=== PATIENT | female | born 1960 | race Caucasian/White ===

== ENCOUNTER 2016-09-22 09:55 | Outpatient (CLI) | payer MEDICARE, OTHER ==
[2012-07-06 18:52] VITALS: BP 118/64
[2016-09-22 10:25] LABS: eGFR (African) > 60; eGFR (Non-African) > 60
[2016-09-22 10:26] LABS: BASOPHILS % 0.7 (0.0-1.5); EOSINOPHILS % 3.9 % (0.0-6.8); MEAN CORPUSCULAR HEMOGLOBIN 27.3 pg (28.0-34.0); MEAN CORPUSCULAR VOLUME 85.3 fl (80.0-100.0); MONOCYTES % 3.5 % (0.0-11.0); NEUTROPHILS # 5.8 # k/uL (1.4-7.7)
== END 2016-09-22 09:56 ==
LOC: LABRHC 09:55
PROVIDERS: ATTEND Family Medicine
DX: R53.82 Chronic fatigue, unspecified (principal); R73.9 Hyperglycemia, unspecified
CPT/HCPCS: 80053; 83036; 85025

== ENCOUNTER 2017-01-18 10:18 | Emergency (ER) | payer MEDICARE, OTHER ==
--- NOTE | 2017-01-18 10:48 | ED Physician Documentation ---
General Adult - HISTORIAN Historian: patient - HPI Stated Complaint: high blood pressure Chief Complaint: General Adult Onset: days ago (2) Further Comments: yes (56 year old female patient presents with complaints of hypertension. Patient reports she increased her losartan to twice a day on Wednesday and Wednesday. See attached BP record. Patient states she has not been able to keep her lymphedema wraps on her legs.) - ROS CONST: no problems EYES/ENT: none CVS/RESP: none GI/: none MS/SKIN/LYMPH: other (leg edema - bilateral) NEURO/PSYCH: denies: headache, fainting, dizziness, tingling, numbness, difficulty walking, difficulty with speech, anxiety, depression, other - PAST HX Past History: hypertension Other History: other (lymphedema) Allergies/Adverse Reactions: Allergies Allergy/AdvReac Type Severity Reaction Status Date / Time Penicillins Allergy Intermediate Hives Verified 01/18/17 10:41 Sulfa (Sulfonamide Allergy Verified 01/18/17 10:41 Antibiotics) Home Medications: Ambulatory Orders Medication Instructions Recorded Estradiol [Estrace] 2 mg PO QDAY 07/06/12 Losartan Potassium [Cozaar] 25 mg PO BID #28 01/18/17 Losartan Potassium [Cozaar] 25 mg PO BID #28 tablet 01/18/17 - SOCIAL HX Smoking History: cigarettes - FAMILY HX Family History: No - VITAL SIGNS Vital Signs: Vital Signs Temp Pulse Resp BP Pulse Ox 97.7 F 88 16 160/93 99 01/18/17 10:18 01/18/17 10:18 01/18/17 10:18 01/18/17 10:18 01/18/17 10:18 - REVIEWED ASSESSMENTS Nursing Assessment Reviewed: Yes Vitals Reviewed: Yes Progress - Progress Progress: Patient reports she is followed by lyphedema clinic. Does not have wraps on her legs today. Patient wanting to cut a sock and place under her wraps. Instructed patient to call clinic at and to follow their instructions. Explained she needed to wear her wraps as instructed by the clinic. Discussed BP, likely related to increased edema. Will increase losartan to BID , instructed patient to see Dr Abarca next week for medication management. General Adult Physical Exam - PHYSICAL EXAM GENERAL APPEARANCE: [id number] N EENT: eye inspection normal, MULUGETA RESPIRATORY: no resp distress, chest non-tender, breath sounds normal CVS: reg rate & rhythm, heart sounds normal, equal pulses, no murmur, no gallop , PMI nml, no JVD, no friction rub, 24 ABDOMEN: soft, no organomegaly, normal bowel sounds, no abdominal bruit, no distension BACK: normal inspection, no CVA tenderness SKIN: normal color, warm/dry, NR, INT, PAL, DR EXTREMITIES: non-tender, normal range of motion, no evidence of injury, edema (2 + edema) NEURO: oriented X3, CN's nml as tested, motor nml, sensation nml, mood/affect nml Discharge Clincal Impression: Lymph edema Hypertension Qualifiers: Hypertension type: essential hypertension Qualified Code(s): I10 - Essential ( primary) hypertension Prescriptions: Losartan Potassium [Cozaar] 25 mg PO BID #28 Losartan Potassium [Cozaar] 25 mg PO BID #28 tablet Referrals: Malcolm Abarca MD [Primary Care Provider] - 2 Days Additional Instructions: Increase your losartan to twice a day. A prescription for 14 days worth of medication has been [facility] to [facility]. Make an appointment to see Dr Abarca NEXT week for a BP check and adjustment of medication. Home Medications: Ambulatory Orders Estradiol [Estrace] 2 mg PO QDAY 07/06/12 Losartan Potassium [Cozaar] 25 mg PO BID #28 01/18/17 Losartan Potassium [Cozaar] 25 mg PO BID #28 tablet 01/18/17 Condition: Stable Disposition: 01 HOME, SELF-CARE Decision to Admit: NO Decision Time: 10:48
[2017-01-18 11:06] VITALS: BP 137/80
== END 2017-01-18 10:54 | disposition home or self-care (01) ==
LOC: ED 10:18
DX: R60.9 Edema, unspecified (principal); I10 Essential (primary) hypertension
CPT/HCPCS: 99283

== ENCOUNTER 2017-07-27 15:37 | Outpatient (CLI) | payer MEDICARE, OTHER ==
--- NOTE | 2017-07-27 16:42 | Diagnostic Imaging Report ---
ZABRINA GROSS [facility] [address] [facility] [address] [address] Report Submission Date: Jul 27, 2017 4:36:03 PM CDT Patient Study Name: ANDREI PAIZ Date: Jul 27, 2017 4:14:57 PM CDT Modality Type: DX Gender: F Description: PELVIS : 56 Institution: [facility] Physician: ZABRINA GROSS Examination: Plain film left hip History: FELL ON ICE X 4 WEEKS AGO, HIP PAIN (Hx) Comparison exams: None provided Findings: 2 views of the left hip demonstrate normal cortical margins. No fracture no dislocation. Superior acetabular spurring. No soft tissue abnormality. Impression: No acute osseous abnormality. Electronically signed on Jul 27, 2017 4:36:03 PM CDT by: Daren MURRAY
== END 2017-07-27 15:40 ==
LOC: RAD 15:37
PROVIDERS: ATTEND Family Medicine
DX: S70.02XA Contusion of left hip, initial encounter (principal); W19.XXXA Unspecified fall, initial encounter; Y99.9 Unspecified external cause status

== ENCOUNTER 2017-08-16 16:22 | Outpatient (CLI) | payer MEDICARE, OTHER ==
[2017-08-17 13:56] LABS: eGFR (African) > 60; eGFR (Non-African) > 60
== END 2017-08-16 16:23 ==
LOC: LAB 16:22
PROVIDERS: ATTEND Family Medicine
DX: E11.9 Type 2 diabetes mellitus without complications (principal)
CPT/HCPCS: 36415; 80053; 80061; 82043; 83036

== ENCOUNTER 2017-08-23 14:32 | Outpatient (CLI) | payer MEDICARE, OTHER | END 2017-08-23 14:33 | LOC: OUT 14:32 | PROVIDERS: ATTEND Family Medicine | DX: E66.9 Obesity, unspecified (principal); Z68.41 Body mass index [BMI] 40.0-44.9, adult | CPT/HCPCS: G0270 ==

== ENCOUNTER 2017-09-09 12:06 | Outpatient (CLI) | payer MEDICARE, OTHER ==
--- NOTE | 2017-09-09 18:34 | Diagnostic Imaging Report ---
ZABRINA GROSS [facility] [address] [facility] [address] [address] Report Submission Date: September 09, 2017 1:04:34 PM CDT Patient Study Name: ANDREI PAIZ Date: September 09, 2017 12:18:21 PM CDT Modality Type: DX Gender: F Description: LOWER EXTREMITY : 56 Institution: [facility] Physician: ZABRINA GROSS Examination: Plain film knees History: BILATERAL KNEES, BILAT KNEE PAIN, RT WORSE THAN LEFT. NO KNOWN INJURY ( Hx) Findings: 3 views of the right and left knee demonstrates osteopenia. Tibial spine and patellar spurring. No fracture. No dislocation. No joint effusion. No soft tissue irregularity. Impression: Articular degenerative changes and osteopenia. No acute osseous abnormality. Electronically signed on September 09, 2017 1:04:34 PM CDT by: Daren MURRAY
== END 2017-09-09 12:07 ==
LOC: RAD 12:06
PROVIDERS: ATTEND Family Medicine
DX: M17.0 Bilateral primary osteoarthritis of knee (principal)

== ENCOUNTER 2017-09-21 13:08 | Outpatient (CLI) | payer MEDICARE, OTHER ==
[2017-09-21] MEDS ORDERED: TRIAMCINOLONE ACETONID 40MG/ML VIAL ONE (13:10)
[2017-09-21] MEDS ORDERED: Lidocaine 1% 5ml(IM or SUTURE)(PAIN CLINIC) ONE (13:10)
[2017-09-21] MEDS ORDERED: BUPIVACAINE HCL/PF 2.5 MG/ML 10ML VIAL IV ONE (13:10)
--- NOTE | 2017-09-22 11:30 | PIRIFORMIS INJECTION FLUORO ---
SUBJECTIVE: Ms. Deras is a 56-year-old white female I have treated with a lumbar transforaminal for left lower extremity pain last year. She got several weeks of improvement but the pain began to return and subsequently, she was seen by Dr. Deras and received what sounds like a single-shot epidural injection and did not obtain significant improvement at that point. She has been seen by physical therapy who suggested that she has a piriformis muscle spasm. I did examine her today and she certainly has left greater trochanteric bursitis. To this extent, I am going to place a piriformis muscle block with a left greater trochanteric bursa injection under fluoroscopy today. Because she has spinal stenosis and chronic back and lower extremity pain that is not responding to conservative or interventional therapy, I think we could discuss the possibility of a spinal cord stimulator today. FIRST PROCEDURE: Left piriformis muscle injection with fluoroscopic guidance. DESCRIPTION OF PROCEDURE: The risks and benefits of the procedure were explained to the patient in detail today. Specifically the risks of infection, bleeding and nerve injury were explained, with subsequent sequelae including systemic infection, hospitalization, or even paralysis. Furthermore, the risks of steroid exposure including the risks of increased infection risks as well as hypertension and hyperglycemia were discussed. The patient understood these risks and agreed to proceed with the injections. Written consent was obtained. The patient was brought to the fluoroscopy suite and placed on the table in the prone position. The back and gluteal region and posterior hip region was cleaned and sterile drapes were applied. AP and lateral fluoroscopic views of the lumbar spine and pelvis and hip were obtained. An AP fluoroscopic view of the sacrum and left hip joint was obtained. A 23-gauge, 3-1/2 spinal needle was advanced at a point midway between the greater trochanter and the sacrum on fluoroscopic viewing. This was located roughly over the head of the femur on the AP fluoroscopic view. The needle was advanced until it reached the depth of the piriformis muscle. It was verified that there was no aspiration of cerebral spinal fluid or blood or fluid or air. Omnipaque 240 myelogram dye was injected and noted to course within the distribution of the left piriformis muscle. With the needle position thus verified, the medication was injected into the muscle. The needle was subsequently removed from the back. The back was cleaned and bandages were applied over the injection sties as necessary. The patient was subsequently monitored for 20 minutes following the procedure, during which no adverse sequelae were experienced. SECOND PROCEDURE: Left greater trochanteric bursa injection with fluoroscopy. DESCRIPTION OF PROCEDURE: The risks and benefits of the procedure were discussed with the patient, including the risk of infection, bleeding, nerve injury. Furthermore, I discussed the risk of steroid exposure causing hyperglycemia, hypertension, osteoporosis, or increased infectious risks. The patient understood the risks and agreed to proceed. Consent was obtained. The patient was placed in prone position on the fluoroscopy table and the skin overlying the left greater trochanter of the femur was cleaned. The trochanter was visualized under AP fluoroscopy. A needle was inserted over the trochanter and advanced until contact with the trochanter. It was verified that there was no aspiration of fluid or blood. The medication was injected. The needle was removed. The patient was monitored for 20 minutes following the procedure, during which time the patient experienced no adverse sequelae. The patient was discharged to home in good condition with a dairy truck driver driving the patient home. FINAL DIAGNOSES: 1. Left greater trochanteric bursitis. 2. Lumbar spinal stenosis. 3. Chronic back and lower extremity pain. FOLLOW UP: Return to clinic if problems develop or worsen. cc: Dr. Malcolm MURRAY
== END 2017-09-21 13:10 ==
LOC: OUT 13:08
PROVIDERS: ATTEND Anesthesiology Pain Medicine
DX: M70.62 Trochanteric bursitis, left hip (principal); R25.2 Cramp and spasm
CPT/HCPCS: 20610; 64445; 99213; G0463; J3301; J3490; Q9966

== ENCOUNTER 2017-10-26 13:14 | Outpatient (CLI) | payer MEDICARE, OTHER ==
[2017-10-26] MEDS ORDERED: Lidocaine 1% 5ml(IM or SUTURE)(PAIN CLINIC) ONE (13:15)
[2017-10-26] MEDS ORDERED: BUPIVACAINE HCL/EPINEPHRINE/PF 0.25% VIAL IM ONE (13:15)
[2017-10-26] MEDS ORDERED: TRIAMCINOLONE ACETONID 40MG/ML VIAL ONE (13:15)
--- NOTE | 2017-10-29 10:23 | LUMBAR FACET MBB ---
SUBJECTIVE: Ms. Deras follows up with continued axial back pain, lumbosacral in nature. Her radicular symptoms have resolved. I have interviewed her regarding symptoms of neurogenic claudication and she says at this point, she is only getting neurogenic claudication when she has prolonged periods of time on her feet. She complains of axial back pain. She has a positive assisted extension and extension rotation. Her MRI reveals an L4-L5 stenosis but also spondylolytic changes at L4-L5 and L5-S1. As she has positive assisted extension, I think at this point, bilateral L4, L5, and sacral ala facet medial branch blocks may in fact be of diagnostic significance. She may benefit from radiofrequency ablation of the medial nerve. To this extent, I am going to place bilateral facet medial branch blocks today. OPERATIVE PROCEDURE: Bilateral L4, L5, and sacral ala facet medial nerve branch blocks with fluoroscopic guidance for a total of 6 medial branch nerve blocks. DESCRIPTION OF PROCEDURE: Consent was obtained after risks were fully explained including bleeding, infection, nerve damage, worsening of symptoms, and no improvement. In addition, the risk of steroid exposure causing hyperglycemia, hypertension, osteoporosis, or increased infectious risks were explained to the patient. The patient understood these risks and agreed to proceed. The patient was placed in the prone position on the fluoroscopic procedure table with a pillow underneath the abdomen. The back was cleaned and sterile prep and drape were applied. Under AP and oblique fluoroscopic imaging, the L4 vertebral body was identified and a spinal needle was advanced in an oblique fashion in the left junction of the transverse process and the superior articular process of the L4 vertebral body. After negative aspiration of blood or CSF, the medication was injected. The stylet was replaced in the needle and the needle was subsequently removed from the back. In this exact same fashion, the right L4 transverse process, bilateral L5 transverse process, and bilateral sacral ala were injected for a total of 6 medial branch nerves blocked. The patient tolerated the procedure well. ASSESSMENT: 1. Lumbar spondylosis. 2. L4-L5 spinal stenosis. 3. Radiculitis, now resolved. PLAN: Bilateral L4, L5, and sacral ala facet medial nerve branch blocks with fluoroscopic guidance for a total of 6 medial branch nerve blocks. FOLLOWUP: Return to clinic if problems develop or worsen. cc: Dr. Malcolm MURRAY
== END 2017-10-26 13:15 ==
LOC: OUT 13:14
PROVIDERS: ATTEND Anesthesiology Pain Medicine
DX: M47.816 Spondylosis without myelopathy or radiculopathy, lumbar region (principal); M48.061 Spinal stenosis, lumbar region without neurogenic claudication
CPT/HCPCS: 64493; 64494; 64495; 99214; G0463; J3301

== ENCOUNTER 2018-02-17 14:39 | Outpatient (CLI) | payer MEDICARE, OTHER ==
--- NOTE | 2018-02-17 15:15 | Diagnostic Imaging Report ---
ZABRINA GROSS [facility] [address] [facility].[address] [address] Report Submission Date: Feb 17, 2018 3:04:44 PM CDT Patient Study Name: ANDREI PAIZ Date: Feb 17, 2018 2:43:05 PM CDT Modality Type: DX Gender: F Description: CHEST : 56 Institution: [facility] Physician: ZABRINA GROSS Examination: PA and lateral chest. History: Evaluate lung gavin. ABRAHAM, COUGH PT STATES HX OF SMOKING, COUGH X4 WKS (Hx) Comparison exam: None provided. Findings: PA and lateral views of the chest demonstrates a normal cardiac and mediastinal silhouette. Elevated right hemidiaphragm. No focal infiltrate. No blunting of the costophrenic margins. Osseous structures are appropriate for age. Impression: No acute pulmonary process. Electronically signed on Feb 17, 2018 3:04:44 PM CDT by: Daren MURRAY
== END 2018-02-17 14:40 ==
LOC: LAB 14:39
PROVIDERS: ATTEND Family Medicine
DX: R06.09 Other forms of dyspnea (principal)
CPT/HCPCS: 71046

== ENCOUNTER 2018-04-05 12:19 | Outpatient (CLI) | payer MEDICARE, OTHER ==
[2018-03-23 19:34] VITALS: BP 115/74
[2018-04-05 12:38] LABS: eGFR (Non-African) 38
== END 2018-04-05 12:20 ==
LOC: LABRHC 12:19
PROVIDERS: ATTEND Family Medicine
DX: E87.5 Hyperkalemia (principal)
CPT/HCPCS: 36415; 80048

== ENCOUNTER 2018-04-13 11:06 | Outpatient (CLI) | payer MEDICARE, OTHER ==
[2018-03-23 19:34] VITALS: BP 115/74
[2018-04-13 12:43] LABS: eGFR (Non-African) > 60
[2018-04-13 12:44] LABS: MEAN CORPUSCULAR HEMOGLOBIN 26.9 pg (28.0-34.0)
[2018-04-13 12:45] LABS: BASOPHILS % 0.3 (0.0-1.5); MONOCYTES % 3.7 % (0.0-11.0); NEUTROPHILS # 4.7 # k/uL (1.4-7.7)
--- NOTE | 2018-04-14 03:38 | Diagnostic Imaging Report ---
LU AUSTIN [facility] [address] [facility].[address] [address] Report Submission Date: Apr 13, 2018 12:49:13 PM WIND SITE MANAGER Patient Study Name: ANDREI PAIZ Date: Apr 13, 2018 11:50:21 AM WIND SITE MANAGER Modality Type: DX Gender: F Description: SPINE : 56 Institution: [facility] Physician: LU AUSTIN Examination: Cervical spine History: ACUTE NECK PAIN. PT STATES FALL ON 03/18/18 (Hx) Comparison exams: None available Findings: 3 views of the cervical spine demonstrate normal height and alignment. No anterior compression. No abnormal listhesis. Extensive osteophyte formation. Lateral view does not visualize the lower cervical/upper thoracic region. No odontoid abnormality. No prevertebral abnormality Impression: Limited examination. Degenerative changes. No obvious compression deformity. Electronically signed on Apr 13, 2018 12:49:13 PM WIND SITE MANAGER by: Daren MURRAY
--- NOTE | 2018-04-14 03:45 | Diagnostic Imaging Report ---
LU AUSTIN [facility] [address] [facility] [address] Report Submission Date: Apr 13, 2018 12:44:42 PM DIRECTOR SECURITY MANAGEMENT Patient Study Name: ANDREI PAIZ Date: Apr 13, 2018 11:52:58 AM DIRECTOR SECURITY MANAGEMENT Modality Type: DX Gender: F Description: CHEST : 56 Institution: [facility] Physician: LU AUSTIN 2 views of the chest History: CXR, SOA FOR ABOUT A MONTH. CHF Comparison: March 23, 2018 The cardiac silhouette is upper limits of normal. Again noted is central pulmonary vascular prominence. Bibasilar opacities improved from the prior study. No large pleural effusion. Thoracic spine degenerative changes. Impression: 1. Bibasilar infiltrate/atelectasis slightly improved from the prior study. 2. Mild central pulmonary vascular congestion. Electronically signed on Apr 13, 2018 12:44:42 PM DIRECTOR SECURITY MANAGEMENT by: Kelsea MURRAY
== END 2018-04-13 11:08 ==
LOC: LAB 11:06
PROVIDERS: ATTEND Nurse Practitioner Family
DX: R06.02 Shortness of breath (principal); I50.9 Heart failure, unspecified; M54.2 Cervicalgia; M47.812 Spondylosis without myelopathy or radiculopathy, cervical region
CPT/HCPCS: 36415; 71046; 72040; 80053; 83880; 85025

== ENCOUNTER 2018-04-22 12:50 | Outpatient (CLI) | payer MEDICARE, OTHER ==
[2018-03-23 19:34] VITALS: BP 115/74
--- NOTE | 2018-04-23 06:10 | Diagnostic Imaging Report ---
LU AUSTIN [facility] [address] [facility].[address] [address] Report Submission Date: Apr 22, 2018 1:39:53 PM AUDIO VISUAL AIDE Patient Study Name: ANDREI PAIZ Date: Apr 22, 2018 12:59:30 PM AUDIO VISUAL AIDE Modality Type: DX Gender: F Description: UPPER EXTREMITY : 56 Institution: [facility] Physician: LU AUSTIN Right elbow History: Pain status post fall Three views of the right elbow demonstrate mild osteoarthritic findings of the elbow joint. There is no evidence acute fracture or dislocation. No joint effusion is noted. Impression: Mild osteoarthritis. No evidence for acute fracture or dislocation. Electronically signed on Apr 22, 2018 1:39:53 PM AUDIO VISUAL AIDE by: Johanna MURRAY
--- NOTE | 2018-04-23 06:11 | Diagnostic Imaging Report ---
LU AUSTIN [facility] [address] [facility] [address] Report Submission Date: Apr 22, 2018 1:32:35 PM POULTRY PICKING MACHINE TENDER Patient Study Name: ANDREI PAIZ Date: Apr 22, 2018 12:53:01 PM POULTRY PICKING MACHINE TENDER Modality Type: DX Gender: F Description: LOWER EXTREMITY : 56 Institution: [facility] [place] [facility] Physician: LU AUSTIN Left knee History: Pain status post fall AP, lateral and sunrise views of the left knee demonstrate a tiny spur along the lateral femoral condyle. There is mild narrowing of the patellofemoral compartment joint space. Otherwise, no significant degenerative findings are noted. There is no joint effusion. No acute osseous abnormalities are noted. Impression: Mild degenerative findings as described. No acute osseous abnormality. Electronically signed on Apr 22, 2018 1:32:35 PM POULTRY PICKING MACHINE TENDER by: Johanna MURRAY
== END 2018-04-22 13:35 ==
LOC: RAD 12:50
PROVIDERS: ATTEND Nurse Practitioner Family
DX: M19.021 Primary osteoarthritis, right elbow (principal); M17.12 Unilateral primary osteoarthritis, left knee; M25.521 Pain in right elbow; M25.562 Pain in left knee
CPT/HCPCS: 73080; 73562

== ENCOUNTER 2018-05-02 03:58 | Emergency (ER) | payer MEDICARE, OTHER ==
[2018-05-02] MEDS: methylPREDNISolone SOD SUCC 125 MG/2 ML VIAL IVP ONE (03:58)
[2018-05-02] MEDS: BUDESONIDE 0.5MG/2ML AMPUL.NEB NEB ONE (03:58)
--- NOTE | 2018-05-02 04:02 | ED Physician Documentation ---
Dyspnea - HISTORIAN Historian: patient - HPI Stated Complaint: shorness of breath Chief Complaint: Dyspnea Onset: minutes (20) Duration: continues in ED Initiating Event: upper respiratory illness Severity: moderate Exacerbated By: nothing Associated Symptoms: other (stress) Further Comments: yes (presents to ER with severe dyspnea. She is in moderate distress. After breathing treatment she is able to speak and states her significant other is in the car in front and he is the reason she drove to the ER but her anxiety caused her to increase shortness of air. She states she has no fever although in Nov she had pneumonia and she recent finished another dose yesterday of azithromycin) - ROS CONST: recent illness - PAST HX Lung Disease: asthma Cardiac Disease: CHF Allergies/Adverse Reactions: Allergies Allergy/AdvReac Type Severity Reaction Status Date / Time Penicillins Allergy Intermediate Hives Verified 05/02/18 04:29 Sulfa (Sulfonamide Allergy Verified 05/02/18 04:29 Antibiotics) Home Medications: Ambulatory Orders Medication Instructions Recorded Estradiol [Estrace] 2 mg PO QDAY 07/06/12 Torsemide [Demadex] 20 mg PO BID 05/02/18 - SOCIAL HX Smoking History: non-smoker Alcohol Use: none Drug Use: none - FAMILY HX Family History: none - VITAL SIGNS Vital Signs: Vital Signs Temp Pulse Resp BP Pulse Ox 115/74 03/23/18 19:25 - REVIEWED ASSESSMENTS Nursing Assessment Reviewed: Yes Vitals Reviewed: Yes Progress - Progress Progress: 0400: improving. she reports a decrease in shortness of air. Improved air movement DG 0422: continued improvement - she is requesting to removed the oxygen DG 0440: results discussed. Continued improvement DG ED Results Lab/Radiology - Radiology Radiology Impressions: History: SHORTNESS OF BREATH Findings: Comparison is made to exam dated 03/23/2018. Examination is limited by patient's large body habitus. The heart size is normal. The lungs are clear. Calcified granuloma seen in the right lung base. There is no pleural effusion or pneumothorax identified. The osseous structures are normal. Impression: 1. No acute pulmonary disease. Electronically signed on May 02, 2018 4:19:12 AM BARREL ASSEMBLER by: Sravan Ohara Dyspnea Physical Exam - EXAM General Appearance: moderate distress EENT: eye inspection normal, no signs of dehydration Respiratory: respiratory distress (decreased lung sounds on admission - post first treatment lung expansion improved. post second she is able to speak full sentences lung sounds improved ) CVS: reg. rate & rhythm Abdomen: non-tender Skin: color nml, no rash Extremities: non-tender, no edema Neuro/Psych: oriented x3 Discharge Clincal Impression: Dyspnea Qualifiers: Dyspnea type: unspecified Qualified Code(s): R06.00 - Dyspnea, unspecified Referrals: Malcolm Abarca MD [Primary Care Provider] - 2 Days Comments: 1. Continue meds at home 2. Medrol dose pack 4 mg take as directed start 05.03.2018 3. See PCP in 2-4 days 4. Return to ER for any concerns Condition: Stable Disposition: 01 HOME, SELF-CARE Decision to Admit: NO Date of Decison to Admit: 05/02/18 Decision Time: 05:10
[2018-05-02] MEDS: ALBUTEROL SULFATE 2.5 MG/3 ML AMPUL.NEB NEB ONE (04:14)
[2018-05-02] MEDS: IPRATROPIUM/ALBUTEROL SULFATE 3 ML AMPUL.NEB NEB ONE (04:45)
--- NOTE | 2018-05-02 05:20 | Diagnostic Imaging Report ---
DAVION GARZA [facility] [address] [facility] [address] [place], [place]. [address] Report Submission Date: May 02, 2018 4:19:12 AM TRANSPORTATION PROJECT MANAGER Patient Study Name: ANDREI PAIZ Date: May 02, 2018 4:00:52 AM TRANSPORTATION PROJECT MANAGER Modality Type: DX Gender: F Description: CHEST : 56 Institution: [facility] Physician: DAVION GARZA Chest, 1 view History: SHORTNESS OF BREATH Findings: Comparison is made to exam dated 03/23/2018. Examination is limited by patient's large body habitus. The heart size is normal. The lungs are clear. Calcified granuloma seen in the right lung base. There is no pleural effusion or pneumothorax identified. The osseous structures are normal. Impression: 1. No acute pulmonary disease. Electronically signed on May 02, 2018 4:19:12 AM TRANSPORTATION PROJECT MANAGER by: Sravan MURRAY
[2018-05-02 05:44] VITALS: BP 108/58
[2018-05-02 06:57] LABS: BASOPHILS % 0.3 (0.0-1.5); MEAN CORPUSCULAR HEMOGLOBIN 25.5 pg (28.0-34.0); MONOCYTES % 4.2 % (0.0-11.0); NEUTROPHILS # 6.6 # k/uL (1.4-7.7); eGFR (Non-African) > 60
== END 2018-05-02 05:00 | disposition home or self-care (01) ==
LOC: ED 03:58
DX: R06.00 Dyspnea, unspecified (principal)
CPT/HCPCS: 36415; 71045; 80053; 85025; 94640; 99283; 99285; J2930; J7626; S1016

== ENCOUNTER 2018-05-31 14:23 | Outpatient (CLI) | payer MEDICARE, OTHER ==
--- NOTE | 2018-05-31 15:22 | Diagnostic Imaging Report ---
LU AUSTIN [facility] [address] [facility].[address] [address] Report Submission Date: May 31, 2018 3:10:36 PM CATEGORY CONSULTANT Patient Study Name: ANDREI PAIZ Date: May 31, 2018 2:40:54 PM CATEGORY CONSULTANT Modality Type: DX Gender: F Description: CHEST : 56 Institution: [facility] Physician: LU AUSTIN Examination: PA and lateral chest. History: Evaluate lung gavin. SHORT OF BREATH TODAY Comparison exam: 02 May 2018 Findings: PA and lateral views of the chest demonstrates a normal cardiac and mediastinal silhouette. No focal infiltrate. No blunting of the costophrenic margins. Right lower lung granuloma. Osseous structures are appropriate for age. Impression: No acute pulmonary process. Electronically signed on May 31, 2018 3:10:36 PM CATEGORY CONSULTANT by: Daren MURRAY
[2018-05-31 15:31] LABS: BASOPHILS % 0.3 (0.0-1.5); EOSINOPHILS % 2.7 % (0.0-6.8); MEAN CORPUSCULAR HEMOGLOBIN 26.4 pg (28.0-34.0); MONOCYTES % 5.2 % (0.0-11.0); NEUTROPHILS # 5.3 # k/uL (1.4-7.7)
[2018-05-31 15:40] LABS: eGFR (Non-African) 41
== END 2018-05-31 14:25 ==
LOC: RT 14:23
PROVIDERS: ATTEND Nurse Practitioner Family
DX: R06.02 Shortness of breath (principal); I50.9 Heart failure, unspecified; I10 Essential (primary) hypertension
CPT/HCPCS: 36415; 71046; 80053; 83880; 84484; 85025

== ENCOUNTER 2018-06-10 12:38 | Emergency (ER) | payer MEDICARE, OTHER ==
[2018-06-10] MEDS ORDERED: IPRATROPIUM/ALBUTEROL SULFATE 3 ML AMPUL.NEB NEB ONE (13:27)
--- NOTE | 2018-06-10 13:27 | ED Physician Documentation ---
General Adult - HISTORIAN Historian: patient - HPI Stated Complaint: Shortness of breath, sore throat Chief Complaint: General Adult Onset: days ago Timing: still present Severity: moderate Further Comments: yes (Pt is a 57 yo female with hx asthma and GERD who has been wheezy and has had difficulty swallowing for a week. Pt says she is not nauseated, but she feels as though she cannot get food down and that her throat feels blocked. Pt says that she feels stomach fluid come back up, and she has found it on her pillow in the morning. Pt says she has not awakened from choking. Pt reports fever of 101 at home and pain in her L ear.) - ROS CONST: no problems EYES/ENT: sore throat CVS/RESP: shortness of breath (wheezing) GI/: other (GERD) MS/SKIN/LYMPH: none - PAST HX Past History: other (Asthma, CHF, HTN, chronic back pain, OA, obesity, nasal fx Mar 2018.) Allergies/Adverse Reactions: Allergies Allergy/AdvReac Type Severity Reaction Status Date / Time Penicillins Allergy Intermediate Hives Verified 06/10/18 13:15 Sulfa (Sulfonamide Allergy Verified 06/10/18 13:15 Antibiotics) Home Medications: Ambulatory Orders Medication Instructions Recorded Estradiol [Estrace] 2 mg PO QDAY 07/06/12 Torsemide [Demadex] 20 mg PO BID 05/02/18 - SOCIAL HX Smoking History: cigarettes - FAMILY HX Family History: No - VITAL SIGNS Vital Signs: Vital Signs Temp Pulse Resp BP Pulse Ox 97.7 F 67 32 H 118/70 95 06/10/18 12:48 06/10/18 12:48 06/10/18 12:48 06/10/18 12:48 06/10/18 12:48 - REVIEWED ASSESSMENTS Nursing Assessment Reviewed: Yes Vitals Reviewed: Yes Progress - Progress Progress: Duoneb HFN Solu-medrol 125 mg IV CXR: PA and lateral views of the chest demonstrates a normal cardiac and mediastinal silhouette. Elevated right hemidiaphragm. Few linear densities right lower lung. No blunting of the costophrenic margins. Osseous structures are appropriate for age. Impression: Mild linear densities/atalectasis right lower lung. No effusion. GI cocktail Rapid Strep - pos d/c instructions Rx Z-hien (Azithromycin). Use as directed on package. Rx Prednisone 50 mg. Take one tablet by mouth once daily for 5 days. Start on 06-11-18. called to [facility]. Continue home asthma medications and other medications. - EKG/XRAY/CT EKG: NSR (HR=82; normal OK interval; normal axis; low voltage.) XRAY: chest (Mild linear densities/atalectasis right lower lung. No effusion.) General Adult Physical Exam - PHYSICAL EXAM GENERAL APPEARANCE: mild distress (anxious) EENT: TM's nml, pharyngeal erythema NECK: normal inspection, supple RESPIRATORY: no resp distress, wheezes (b/l) CVS: reg rate & rhythm, heart sounds normal ABDOMEN: soft, no organomegaly, normal bowel sounds BACK: normal inspection, no CVA tenderness SKIN: warm/dry, normal color EXTREMITIES: non-tender, normal range of motion, no evidence of injury NEURO: oriented X3, motor nml, sensation nml Discharge Clincal Impression: Strep pharyngitis, Asthma Referrals: Malcolm Abarca MD [Primary Care Provider] - Condition: Stable Disposition: 01 HOME, SELF-CARE Decision to Admit: NO Decision Time: 16:56
[2018-06-10] MEDS ORDERED: 0.9 % SODIUM CHLORIDE 1,000 ML IV ONE (14:01)
[2018-06-10] MEDS ORDERED: 0.9 % SODIUM CHLORIDE 500 ML IV ONE (14:05)
[2018-06-10 14:54] LABS: BASOPHILS % 0.4 (0.0-1.5); EOSINOPHILS % 2.5 % (0.0-6.8); MEAN CORPUSCULAR HEMOGLOBIN 26.3 pg (28.0-34.0); MONOCYTES % 4.6 % (0.0-11.0); NEUTROPHILS # 6.3 # k/uL (1.4-7.7)
[2018-06-10 15:09] LABS: eGFR (Non-African) > 60
[2018-06-10] MEDS ORDERED: methylPREDNISolone SOD SUCC 125 MG/2 ML VIAL IVP ONE (15:14)
[2018-06-10] MEDS ORDERED: MAG HYDROX/ALUMINUM HYD/SIMETH 30 ML, Lidocaine 2%Visc 15ml 20 MG, PHENOBARB-HYOSCYAM-A... PO ONE ×3 (16:38)
[2018-06-10] MEDS ORDERED: LIDOCAINE HCL 2% VISC. ORAL 300MG/15ML UDC ONE (16:43)
[2018-06-10] MEDS ORDERED: MAGNESIUM, ALUMINUM HYDROXIDE 30 ML UDC PO ONE (16:43)
[2018-06-10 18:08] VITALS: BP 119/58
--- NOTE | 2018-06-11 03:36 | Diagnostic Imaging Report ---
BASIL RANDALL [facility] [address] [facility] [address] [address] Report Submission Date: Jun 10, 2018 3:02:44 PM MONEY ROOM TELLER Patient Study Name: ANDREI PAIZ Date: Jun 10, 2018 2:32:28 PM MONEY ROOM TELLER Modality Type: DX Gender: F Description: CHEST 2VIEW : 56 Institution: [facility] Physician: BASIL RANDALL Examination: PA and lateral chest. History: Evaluate lung gavin. Comparison exam: 31 May 2018 Findings: PA and lateral views of the chest demonstrates a normal cardiac and mediastinal silhouette. Elevated right hemidiaphragm. Few linear densities right lower lung. No blunting of the costophrenic margins. Osseous structures are appropriate for age. Impression: Mild linear densities/atalectasis right lower lung. No effusion. Electronically signed on Jun 10, 2018 3:02:44 PM MONEY ROOM TELLER by: Daren MURRAY
== END 2018-06-10 17:14 | disposition home or self-care (01) ==
LOC: ED 12:38
DX: J02.0 Streptococcal pharyngitis (principal); B95.0 Streptococcus, group A, as the cause of diseases classified elsewhere; J45.909 Unspecified asthma, uncomplicated; Z72.0 Tobacco use
CPT/HCPCS: 36415; 71046; 80053; 82550; 82553; 83880; 84484; 85025; 87040; 87880; 93005; 94640; 96374; 99283; 99284; A9270; J2930; J7060; S1016

== ENCOUNTER 2018-08-16 13:10 | Outpatient (CLI) | payer MEDICARE, OTHER ==
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
== END 2018-08-16 14:23 ==
LOC: OUT 13:10
PROVIDERS: ATTEND Physical Medicine & Rehabilitation
DX: M54.5 Low back pain (principal); G89.29 Other chronic pain; M12.88 Other specific arthropathies, not elsewhere classified, other specified site; M48.062 Spinal stenosis, lumbar region with neurogenic claudication; E66.01 Morbid (severe) obesity due to excess calories; R53.81 Other malaise
CPT/HCPCS: 99214; G0463